=== PATIENT | female | born 1945 | race Caucasian/White ===

== ENCOUNTER → 2019-10-13 | Outpatient (CLI) | payer BC ==
[~2019-10-13] MED LIST: ALBU90OI INH; AMLO5 PO; ASPI81CH PO; ATOR40TA PO; AZIT250 PO; BENZ100A; BENZ100A PO; BUPR75; COMBIVENT RESPIM4 GM INH; DIPH25; FLUT.05NI; METPRE4DP PO; Mucinex1200 MG PO; PULMICORT0.5 MG/2 M INH; Prednisone10 MG PO; ZESTORETIC 20-251 EA PO
[2019-10-13 12:54] LABS: BASOPHILS ABSOLUTE AUTO 0.14 K/mm3 (0.00-0.23); BASOPHILS PERCENT AUTO 1 % (0-2); EOSINOPHILS ABSOLUTE AUTO 0.73 K/mm3 (0.00-0.68); EOSINOPHILS PERCENT AUTO 5 % (0-6); Hematocrit 46.4 % (33.0-51.0); Hemoglobin 15.9 g/dL (11.5-16.0); IMMATURE GRAN ABSOLUTE AUTO 0.07 K/mm3 (0.00-0.10); IMMATURE GRAN PERCENT AUTO 1 % (0-1); LYMPHOCYTES ABSOLUTE AUTO 3.23 K/mm3 (0.84-5.20); LYMPHOCYTES PERCENT AUTO 21 % (21-46); MONOCYTES ABSOLUTE AUTO 0.95 K/mm3 (0.16-1.47); MONOCYTES PERCENT AUTO 6 % (4-13); Mean Corpuscular HGB 31.5 pg (26.0-34.0); Mean Corpuscular HGB Conc 34.3 g/dL (31.5-36.5); Mean Corpuscular Volume 92 fL (80-100); Mean Platelet Volume 10.6 fL (9.1-12.4); NEUTROPHILS ABSOLUTE AUTO 10.26 K/mm3 (1.96-9.15); NEUTROPHILS PERCENT AUTO 67 % (41-73); Platelet Count 227 K/mm3 (150-400); RDW Coefficient Variation 13.1 % (11.7-14.2); Red Blood Cell Count 5.04 M/mm3 (3.80-5.20); White Blood Cell Count 15.38 K/mm3 (4.00-11.30)
[2019-10-13 13:01] LABS: Anion Gap 9 mmol/L (6-16); Blood Urea Nitrogen 14 mg/dL (8-24); Bun/Creatinine Ratio 18.2 (12.0-20.0); CO2, Blood 27 mmol/L (21-32); Calcium, Blood 9.8 mg/dL (8.5-10.1); Chloride, Blood 105 mmol/L (98-108); Creatinine, Blood 0.77 mg/dL (0.40-1.00); Glomerular Filtration Rate >60 (60-); Glucose, Blood 100 mg/dL (70-99); Potassium, Blood 3.6 mmol/L (3.5-5.5); Sodium, Blood 141 mmol/L (136-145)
== END ==
LOC: LAB SHORT 12:51 → LAB EV 12:51
PROVIDERS: Physician Assistant Surgical
DX: R06.00 Dyspnea, unspecified (principal)
CPT/HCPCS: 80048; 85025

== ENCOUNTER 2019-10-15 12:35 | Inpatient (IN) | payer BC, MEDICARE ==
[~2019-10-15] VITALS: Ht 162.6 cm; Wt 90.5 kg
[~2019-10-15 12:35] MED LIST changes: -ALBU90OI INH; -ASPI81CH PO; -AZIT250 PO; -BENZ100A PO; -Mucinex1200 MG PO; -PULMICORT0.5 MG/2 M INH; -Prednisone10 MG PO
[2019-10-15 15:38] LABS: Influenza A Negative (NEGATIVE); Influenza B Negative (NEGATIVE)
[2019-10-15] MEDS ORDERED: ALBU90OI INH (16:57)
--- NOTE | 2019-10-15 18:40 | NUR ---
PT ADMITTED. PT ADMITTED AT 1808. PT SATING IN THE 90S ON RA. HR ELEVATED AT 102. CARDIAC MEDS GIVEN. PT ORIENTED TO ROOM. CALL LIGHT IN REACH. FAMILY AT BEDISDE. PT IN STABLE CONDITION. WILL CONTINUE TO MONITOR UNTIL TURNOVER IS COMPLETE.
[2019-10-15 19:30] LABS: Adenovirus Not Detected (NOT DETECT); Bordetella pertussis Not Detected (NOT DETECT); Chlamydophila pneumoniae Not Detected (NOT DETECT); Coronavirus 229E Not Detected (NOT DETECT); Coronavirus HKU1 Not Detected (NOT DETECT); Coronavirus NL63 Not Detected (NOT DETECT); Coronavirus OC43 Not Detected (NOT DETECT); Human Metapneumovirus Not Detected (NOT DETECT); Human Rhinovirus/Enterovirus Not Detected (NOT DETECT); Influenza A Not Detected (NOT DETECT); Influenza A/2009-H1 Not Detected (NOT DETECT); Influenza A/H1 Not Detected (NOT DETECT); Influenza A/H3 Not Detected (NOT DETECT); Influenza B Not Detected (NOT DETECT); Mycoplasma pneumoniae Not Detected (NOT DETECT); Parainfluenza Virus 1 Not Detected (NOT DETECT); Parainfluenza Virus 2 Not Detected (NOT DETECT); Parainfluenza Virus 3 Not Detected (NOT DETECT); Parainfluenza Virus 4 Not Detected (NOT DETECT); Respiratory Syncytial Virus Not Detected (NOT DETECT)
--- NOTE | 2019-10-16 00:33 | NUR ---
LATE ENTRY PHYSICIAN CORRESPONDENCE 10/05/19 @ 1935 CRITICAL LAB DRAWN @ 1849 10/15/19 YEILDED LACTIC 7.0; PREVIOUS LACTIC IN ED 2.4. PATIENT RECIEVED 1L NS IN ED. NEW ORDERS PLACED FOR 2 BAGS OF LR. UPON ASSESSMENT PATIENT DID NOT APPEAR IN ANY DISTRESS. HR ELEVATED, AND EXHIBITING LOW GRADE FEVER 99.1. WCTM.
--- NOTE | 2019-10-16 00:36 | NUR ---
LATE ENTRY PHYSICIAN CORRESPONDENCE 10/15/19 @ 9940 CRITICAL LAB VALUE RECIEVED @ 2239; LACTIC 5.3. PHYSICIAN AWARE. NO NEW ORDERS @ THIS TIME. WCTM.
--- NOTE | 2019-10-16 04:27 | NUR ---
PHYSICIAN CORRESPONDENCE 2959 ALERTED PHYSICIAN THAT PATIENT HAS BEEN EXPERIENCE A HARSH DRY COUGH FOR ABOUT AN HOUR. HAS RECIEVED A BREATHING TX PER RT AND WAS OFFERED ICE CHIPS. BT WORKED FOR A FEW MINUTES. PT STATED THAT ICE CHIPS WOULD NOT HELP. NEW ORDERS FOR TESANA ROSAON JESSELS AND GENIASIN.
[2019-10-16 04:32] LABS: BASOPHILS ABSOLUTE AUTO 0.02 K/mm3 (0.00-0.23); BASOPHILS PERCENT AUTO 0 % (0-2); EOSINOPHILS PERCENT AUTO 0 % (0-6); Hematocrit 45.6 % (33.0-51.0); Hemoglobin 14.7 g/dL (11.5-16.0); IMMATURE GRAN ABSOLUTE AUTO 0.21 K/mm3 (0.00-0.10); IMMATURE GRAN PERCENT AUTO 1 % (0-1); LYMPHOCYTES ABSOLUTE AUTO 1.24 K/mm3 (0.84-5.20); LYMPHOCYTES PERCENT AUTO 6 % (21-46); MONOCYTES ABSOLUTE AUTO 0.54 K/mm3 (0.16-1.47); MONOCYTES PERCENT AUTO 3 % (4-13); Mean Corpuscular HGB 30.8 pg (26.0-34.0); Mean Corpuscular HGB Conc 32.2 g/dL (31.5-36.5); NEUTROPHILS ABSOLUTE AUTO 18.61 K/mm3 (1.96-9.15); NEUTROPHILS PERCENT AUTO 90 % (41-73); Platelet Count 212 K/mm3 (150-400); RDW Coefficient Variation 13.3 % (11.7-14.2); RDW Standard Deviation 47.4 fL (35.1-46.3); Red Blood Cell Count 4.77 M/mm3 (3.80-5.20); White Blood Cell Count 20.62 K/mm3 (4.00-11.30)
[2019-10-16 04:33] LABS: Mean Corpuscular Volume 96 fL (80-100)
[2019-10-16 04:58] LABS: Alanine Aminotransfer (ALT/SGP 30 U/L (12-78); Albumin, Blood 2.9 g/dL (3.4-5.0); Albumin/Globulin Ratio 0.9 (0.8-1.8); Alk Phos 56 U/L (50-136); Anion Gap 9 mmol/L (6-16); Aspartate Aminotrans (AST/SGOT 13 U/L (12-37); Bilirubin, Total 0.2 mg/dL (0.1-1.0); Blood Urea Nitrogen 20 mg/dL (8-24); Bun/Creatinine Ratio 31.5 (12.0-20.0); CO2, Blood 24 mmol/L (21-32); Calcium, Blood 8.8 mg/dL (8.5-10.1); Chloride, Blood 110 mmol/L (98-108); Creatinine, Blood 0.64 mg/dL (0.40-1.00); Globulin, Blood 3.4 g/dL (2.2-4.0); Glomerular Filtration Rate >60 (60-); Glucose, Blood 139 mg/dL (70-99); Magnesium, Blood 2.2 mg/dL (1.6-2.4); Potassium, Blood 3.7 mmol/L (3.5-5.5); Sodium, Blood 143 mmol/L (136-145); Total Protein, Blood 6.3 g/dL (6.4-8.2)
--- NOTE | 2019-10-16 06:00 | NUR ---
SHIFT SUMMARY A/O, ABLE TO MAKE NEEDS KNOWN. COOPERATIVE WITH CARE. CALLS AND ANSWERS QUESTIONS APPROPRIATLEY. NO C/O PAIN/DISCOMFORT. APPEARED TO REST OFF AND ON T/O SHIFT. COUGH; PRODUCTIVE, HARSH, AND HACKING (SEE PREV JOON NOTE). CRITICAL LAB FOR LACTIC ACID THIS AM (SEE PREV JOON NOTE). NO ACUTE CHANGES OVERNIGHT. VSS/AFEBRILE. BED IN LOWEST POSITION. CALL LIGHT AND BELONGINGS WITHIN REACH. WCTM. REPORT TO ONCOMING RN.
--- NOTE | 2019-10-16 06:19 | NUR ---
PHYSICIAN CORRESPONDENCE [id number] ALERTED PHYSICIAN THAT LACTIC ACID IS DOWN TRENDING, BUT STILL CRITICAL @ 3.8. NEW ORDERS FOR CONTINUOUS LR @ 100 ML/HR.
--- NOTE | 2019-10-16 10:04 | NUR ---
PT TOOK HOME MEDICATIONS. PT TOOK HOME MEDICATION OF LISINOPRIL-HCTZ 20-25, NORVASC 5 MG, & ATORVISTATIN 40MG THIS AM AFTER SCHEDULED HOSPITAL MEDS WERE ALREADY DISTRIBUTED BY THIS RN. PT EDUCATED ON REASON FOR NOTIFYING THE NURSE WHEN HOME MEDS ARE BROUGHT IN & THE IMPORTANCE OF NOT TAKING HOME MEDS ON HER OWN. PT STATES UNDERSTANDING. BP TAKEN 130/66. HR 87. HAND BUFFER NOTIFIED. MESSAGE LEFT WITH DR. LOAIZA. WILL CONTINUE TO MONITOR BP/HR. PT TO TAKE MEDS HOME.
--- NOTE | 2019-10-16 17:49 | NUR ---
SHIFT SUMMARY PT BP REMAINED STABLE THROUGHOUT SHIFT. OTHER VITALS STABLE. PT C/O CONSITPATION. PRN MIRALAX ORDERED & GIVEN. PT MEDICATED FOR COUGH THROUGH SHIFT ORDERED. PT STATES SHE FEELS SHE IS ABLE TO TAKE LARGER BREATHS WITHOUT COUGHING COMPARED TO THIS AM. NO OTHER CHANGES IN ASSESSMENT AT THIS TIME. WILL CONTINUE TO MONITOR UNTIL TURNOVER IS COMPLETE.
--- NOTE | 2019-10-16 22:35 | NUR ---
BEGINNING SHIFT SUMMARY ASSUMED CARE OF PT AT 1900. PT WAS LYING IN BED COUGHING. PT IS A/O X4. HEART SOUNDS REGULAR, WHEEZING T/O LUNG FEILDS, PT ON 2-3L NASAL CANNULA, THIS IS HER BASELINE, PT C/O SOB DUE TO HER COUGH, SATURATOIN ABOVE 95%, MEDICATED PER EMAR, RT CALLED FOR BREATHING TREATMENT. PT C/O BACK PAIN DUE TO COUGH, MEDICATED PER EMAR AND REPOSTIONED. PT IS CURRENTLY SLEEPING, CALL LIGHT IN REACH, BED IN LOWEST POSTION, WILL CONTINUE TO MONITOR.
[2019-10-17 04:57] LABS: BASOPHILS ABSOLUTE AUTO 0.02 K/mm3 (0.00-0.23); BASOPHILS PERCENT AUTO 0 % (0-2); EOSINOPHILS PERCENT AUTO 0 % (0-6); Hematocrit 45.4 % (33.0-51.0); Hemoglobin 14.8 g/dL (11.5-16.0); IMMATURE GRAN ABSOLUTE AUTO 0.18 K/mm3 (0.00-0.10); IMMATURE GRAN PERCENT AUTO 1 % (0-1); LYMPHOCYTES ABSOLUTE AUTO 1.32 K/mm3 (0.84-5.20); LYMPHOCYTES PERCENT AUTO 7 % (21-46); MONOCYTES ABSOLUTE AUTO 0.56 K/mm3 (0.16-1.47); MONOCYTES PERCENT AUTO 3 % (4-13); Mean Corpuscular HGB 30.6 pg (26.0-34.0); Mean Corpuscular HGB Conc 32.6 g/dL (31.5-36.5); Mean Corpuscular Volume 94 fL (80-100); Mean Platelet Volume 11.3 fL (9.1-12.4); NEUTROPHILS PERCENT AUTO 89 % (41-73); Platelet Count 221 K/mm3 (150-400); RDW Coefficient Variation 13.2 % (11.7-14.2); RDW Standard Deviation 45.7 fL (35.1-46.3); Red Blood Cell Count 4.84 M/mm3 (3.80-5.20); White Blood Cell Count 18.68 K/mm3 (4.00-11.30)
[2019-10-17 05:19] LABS: Anion Gap 6 mmol/L (6-16); Blood Urea Nitrogen 19 mg/dL (8-24); Bun/Creatinine Ratio 34.6 (12.0-20.0); CO2, Blood 29 mmol/L (21-32); Calcium, Blood 9.4 mg/dL (8.5-10.1); Chloride, Blood 107 mmol/L (98-108); Creatinine, Blood 0.55 mg/dL (0.40-1.00); Glomerular Filtration Rate >60 (60-); Glucose, Blood 138 mg/dL (70-99); Sodium, Blood 142 mmol/L (136-145)
--- NOTE | 2019-10-17 06:20 | NUR ---
END SHIFT SUMMARY PT C/O NOT BEING ABLE TO SLEEP DURING THE NIGHT, HOSPITALIST CALLED AND ORDERED MELATONIN, PT STATED THAT SHE WAS ABLE TO SLEEPT BETTER DUE TO THIS. PT AOKE DURING THE NIGHT DUE TO HER COUGH, RT CALLED AND BREATHING TREATMENT ADMINISTERED, PT WAS ALSO MEDICATED PER EMAR. PT C/O CONSTIPATION, MIRALAX GIVEN. PT IS CURRENTLY BACK TO SLEEP, CALL LIGHT IN REACH, BED IN LOWEST POSTION, WILL CONTINUE TO MONITOR.
[2019-10-17] MEDS ORDERED: ASPI81CH PO (11:46)
[2019-10-17] MEDS ORDERED: BENZ100A PO (11:46)
[2019-10-17] MEDS ORDERED: PULMICORT0.5 MG/2 M INH (11:47)
[2019-10-17] MEDS ORDERED: Mucinex1200 MG PO (11:48)
[2019-10-17] MEDS ORDERED: AZIT250 PO (11:49)
[2019-10-17] MEDS ORDERED: Prednisone10 MG PO (11:51)
--- NOTE | 2019-10-17 12:16 | NUR ---
DISCHARGE SUMMARY PT DISCHARGED TO HOME. PT LEFT ROOM VIA WHEELCHAIR AND VOLUNTEER ESCORT AT THIS TIME. IV DC'D AND BELONGINGS RETURNED. DISCHARGE INSTRUCTIONS COMPLETED, ALL QUESITONS ANSWERED. PT AGREES TO FOLLOW UP WITH PCP PER APPOINTMENT. EDUCATION ABOUT NEW MEDICATIONS AND SMOKING CESSATION, COPD AND HOME OXYGEN USE DISCUSSED.
== END 2019-10-17 12:12 | disposition home or self-care (01) | DRG 192 ==
LOC: ER 12:35 → MEDS 16:51 → ENPENDDIS 10-17 10:51 → MEDS 10-17 12:12
PROVIDERS: Emergency Medicine; ADMIT Internal Medicine
DX: J44.1 Chronic obstructive pulmonary disease with (acute) exacerbation (principal); I10 Essential (primary) hypertension; E78.5 Hyperlipidemia, unspecified; F17.210 Nicotine dependence, cigarettes, uncomplicated; Z79.82 Long term (current) use of aspirin; Z79.899 Other long term (current) drug therapy
CPT/HCPCS: 0099U; 36415; 80048; 80053; 83605; 83735; 84145; 85025; 87040; 87804; 94640; 94644; 94762; 96360; 96361; 99285-25; A9270; J0456; J1650; J2930; J7030; J7050; J7120

== ENCOUNTER 2021-11-29 23:31 | Emergency (ER) | payer BC ==
[~2021-11-29] VITALS: Ht 167.6 cm; Wt 90.7 kg
[~2021-11-29 23:31] MED LIST changes: +ALBU2.5V5 INH; +AMLO10 PO; +ASPI81CH PO; +AZIT250 PO; +BENZ100A PO; +CASTOR OIL PO; +COMBIVENT RESPIM4 G1 INH; +FLONASE ALLERG9.9 M2; +GUAI600T33 PO; +IRBESARTAN-HCT1 EAC3 PO; +LOSA50 PO; +Loratadine10 MG PO; +Mucinex1200 MG PO; +NASAL SPRAY88 ML; +OMEPRAZOLE MAGN20 MG PO; +PRED20 PO; +PULMICORT0.5 MG/2 M INH; +PULMICORT0.5 MG/21 INH; +Prednisone10 MG PO; +STIOLTO RESPIMAT4 G1 INH; +SYMBICORT 160-4.6 GM INH
[2021-11-29] MEDS ORDERED: IRBESARTAN300 M3 PO (23:53)
[2021-11-29] MEDS ORDERED: FURO20 PO (23:54)
== END 2021-11-30 00:37 | disposition home or self-care (01) ==
LOC: ER 23:31
DX: I10 Essential (primary) hypertension (principal); Z79.899 Other long term (current) drug therapy; J44.9 Chronic obstructive pulmonary disease, unspecified; Z87.891 Personal history of nicotine dependence
CPT/HCPCS: 93005; 93010; 99284-25